=== PATIENT | female | born 1965 | race Caucasian/White ===

== ENCOUNTER → 2017-03-30 18:38 | Outpatient (CLI) | payer MEDICAID ==
[~2017-03-30 18:38] MED LIST: BENICAR HCT 20-1 TA1 PO; COREG6.25 MG PO; PEPCID20 MG PO
[2017-03-30 20:29] LABS: T4 THYROXIN - FREE 1.2 ng/dL (0.76-1.46); THYROID STIMULATING HORMONE 0.91 uIU/mL (0.36-3.74)
== END | disposition home or self-care (01) ==
LOC: D.LABREF 18:38
PROVIDERS: Internal Medicine Cardiovascular Disease
DX: I42.9 Cardiomyopathy, unspecified (principal)

== ENCOUNTER → 2017-08-30 13:00 | Outpatient (CLI) | payer MEDICAID ==
--- NOTE | ~2017-08-30 | EC ---
PATIENT:DEVON OCHOA DATE OF SERVICE: 08/30/17 SEX: F MEDICAL RECORD: [id number] DATE OF : 63 LOCATION:D.[facility] [place] AGE OF PATIENT: 52 ADMISSION DATE: 08/30/17 REFERRING PHYSICIAN: INTERPRETING PHYSICIAN: RAMOS ROMERO MD ECHOCARDIOGRAM REPORT ECHO CHARGES 4 ECHO COMPLETE CLINICAL DIAGNOSIS: CARDIOMYOPATHY/TACHYCARDIA/ DYSPNEA/HTN ECHOCARDIOGRAPHIC MEASUREMENTS (adult normal given) AC root (d.<3.7cm) 2.9 cm LV Septum d (<1.2 cm> 1.3 cm Valve Excursion 2.0 cm LV Septum (systole) 1.7 cm Left Atria (s.<4.0cm> 3.6 cm LVPW d(<1.2cm) 1.2 cm RV (d.<2.3cm) 2.3 cm LVPW (sytole) 1.8 cm LV diastole(<5.6CM) 4.3 cm MV E-F(>70mm/sec) cm LV systole 2.6 cm LVOT Diameter 2.0 cm MV exc.(>10mm) cm Est.ejection fraction (50-75%) % Pericardial Effusion N DOPPLER: LVIT cm/sec A 48.0 cm/sec E 102 cm/sec LA cm/sec RVSP 22.4 mmHg LVOT 95.0 cm/sec AOP1/2T m/s Asc. Ao 134 cm/sec RVOT 79.0 cm/sec RA cm/sec PA 97.0 cm/sec AV Gradient Peak 7.1 mmHg AV Mean 3.7 mmHg AV Area 2.0 cm MV Gradient Peak 5.4 mmHg MV Mean 2.0 mmHg MV Area cm COMMENTS: Jail Guard: Carlita COMBSOE Gill Net Stringer: Magaly Romero TAPE# PACS DATE OF SERVICE: 08/30/2017 PROCEDURE: Transthoracic echocardiogram. FINDINGS: 1. Left ventricle is normal size, normal function with inflow characteristics that are normal. There is mild concentric left ventricular hypertrophy. 2. The left atrium is normal size, normal function. 3. The aortic valve is normal. 4. The mitral valve has normal structure with mild mitral regurgitation. ECHOCARDIOGRAM REPORT [id number] DEVON OCHOA 5. Tricuspid valve has mild tricuspid regurgitation. Normal RVSP. 6. The pericardium is normal. 7. The pulmonic valve is not well visualized, otherwise grossly normal. 8. The right ventricle is normal size and normal function. 9. The right atrium is mildly dilated. TRANSINT:[id number] Voice Confirmation ID: [id number] DOCUMENT ID: [id number] RAMOS ROMERO MD at 1252 CC: [id number] DICTATION DATE: 08/31/17 1116 UNIT SECRETARY: 08/31/17 1253 DEP CLI 08/30/17 [id number] [place] [address]
== END | disposition home or self-care (01) ==
LOC: D.ECHO 13:00
DX: I42.9 Cardiomyopathy, unspecified (principal); R00.0 Tachycardia, unspecified; R06.02 Shortness of breath; I10 Essential (primary) hypertension

== ENCOUNTER 2018-02-15 06:40 | Day surgery (SDC) | payer MEDICAID ==
[~2018-02-15] VITALS: Ht 154.9 cm; Wt 98.0 kg
--- NOTE | ~2018-02-15 | OP ---
PATIENT NAME: DEVON OCHOA MEDICAL RECORD: [id number] :63 LOCATION:D.[facility] ADMISSION DATE: SURGEON: ENRIQEU MALDONADO MD DATE OF OPERATION: 02/15/2018 PREOPERATIVE DIAGNOSES: 1. Biliary dyskinesia. 2. Hypertension. 3. 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 POSTOPERATIVE DIAGNOSES: 1. Biliary dyskinesia. 2. Hypertension. 3. 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 PROCEDURE: Laparoscopic cholecystectomy. SURGEON: Enrique Maldonado MD ADMINISTRATIVE ASSISTANT FRONT DESK: Kelly Hernandez APRN REPORT OF OPERATION: The patient's abdomen was prepped and draped in sterile fashion. A cutdown was made on the superior aspect of the umbilicus, 0 Vicryls were placed in the fascia bilaterally and the fascia was incised with 15-blade. I then bluntly entered the peritoneal cavity and placed a 12-mm Katey port. Under direct visualization, a 5 mm trocar was placed in the epigastrium and 2 more 5-mm trocars were placed in the right subcostal region. The gallbladder was grasped and elevated. There was no sign of any inflammatory changes. The cystic artery and cystic duct were dissected free and these were clipped proximally and distally and ligated in standard fashion. The gallbladder was taken off the liver bed using electrocautery and placed into the right upper quadrant. Any bleeding from the liver bed was treated with electrocautery. We then irrigated out the right upper quadrant and assured there was no sign of any further bleeding or bile leakage. At this point, the ports and insufflation were then removed and the gallbladder was taken out through the umbilicus. The umbilical fascia was closed with interrupted 0 Vicryls times 3. The wounds were irrigated out with normal saline and infused with 10 mL of 0.25% Marcaine with epinephrine. The skin incisions were all closed with subcutaneous 5-0 Monocryl and dressed appropriately. COMPLICATIONS: None. CONDITION: Stable. ANESTHESIA: General endotracheal and local. BLOOD LOSS: Minimal. TRANSINT:[id number] Voice Confirmation ID: [id number] DOCUMENT ID: [id number] OPERATIVE REPORT [id number] DEVON OCHOA NERIQUE MALDONADO MD at 1418 CC: RAY REAL [id number] DICTATION DATE: 02/15/18 1035 SANDING MACHINE OPERATOR OR TENDER: 02/15/18 1132 [facility] [address] [id number]
[~2018-02-15 06:40] MED LIST changes: +BENTYL 20 MG TA20 MG PO; +CARAFATE1 G PO; +PRILOSEC2.5 MG PO
[2018-02-15 07:20] LABS: HEMATOCRIT 38.4 % (36.0-48.0); MCH 31.6 pg (26.0-34.0); MCHC 33.9 g/dL (31.0-37.0); MCV 93.2 fL (80.0-100.0); MEAN PLATELET VOLUME 9.3 fL (7.4-10.4); RBC 4.12 10x6/uL (4.00-5.40); RDW 13.9 % (11.5-14.5); WBC 8.6 10x3/uL (4.8-10.8)
[2018-02-15 07:48] VITALS: BP 126/76; Ht 154.9 cm; Wt 98.0 kg
[2018-02-15] MEDS ORDERED: DILAUDID2 MG PO (10:30)
== END 2018-02-15 14:05 | disposition home or self-care (01) ==
LOC: D.OPS 06:40 → D.PAN 13:00 → D.OPS 14:05
PROVIDERS: Anesthesiology
DX: K81.1 Chronic cholecystitis (principal); I11.0 Hypertensive heart disease with heart failure; I50.9 Heart failure, unspecified; F17.200 Nicotine dependence, unspecified, uncomplicated; Z01.812 Encounter for preprocedural laboratory examination

== ENCOUNTER 2018-03-12 12:28 | Inpatient (IN) | payer MEDICAID ==
[~2018-03-12] VITALS: Ht 154.9 cm; Wt 97.5 kg
[~2018-03-12 12:28] MED LIST changes: +DILAUDID2 MG PO
[2018-03-12] MEDS ORDERED: ADIPEX-P37.5 M1 PO (12:43)
[2018-03-12] MEDS ORDERED: LEVAQUIN500 MG PO (12:43)
[2018-03-12] MEDS ORDERED: OMEPRAZOLE40 MG PO (12:44)
[2018-03-12] MEDS ORDERED: ZANTAC150 MG PO (12:44)
[2018-03-12] MEDS ORDERED: ZOFRAN4 MG PO (12:45)
[2018-03-12] MEDS ORDERED: FLAGYL500 MG PO (12:45)
[2018-03-12] MEDS ORDERED: PHENERGAN25 M1 PO (12:46)
[2018-03-12] MEDS ORDERED: BENTYL 20 MG TA20 MG PO (12:47)
[2018-03-12 13:24] LABS: APPEARANCE HAZY (CLEAR); BILIRUBIN NEGATIVE (NEGATIVE); COLOR DK YELLOW (YELLOW); GLUCOSE NEGATIVE (NEGATIVE); KETONE NEGATIVE (NEGATIVE); NITRITE NEGATIVE (NEGATIVE); PH 6.5 (5.0-6.0); PROTEIN NEGATIVE (NEGATIVE); SPECIFIC GRAVITY 1.015 (1.005-1.020); UROBILINOGEN NORMAL (NORMAL)
[2018-03-12 13:32] LABS: BACTERIA MODERATE /hpf (NONE SEEN); EPITHELIAL CELLS 0-5 /hpf (0-5); RED CELLS - URINE 0-5 /hpf (0-5); WHITE CELLS - URINE 0-5 /hpf (0-5); YEAST >1+ /hpf (NONE SEEN)
[2018-03-12 13:36] LABS: BASOPHILS 0.2 % (0-2); EOSINOPHILS 2.7 % (0-7); HEMATOCRIT 40.1 % (36.0-48.0); HEMOGLOBIN 13.5 g/dL (12-16); IMMATURE GRANULOCYTES 0.4 % (0-5); MCH 31.6 pg (26.0-34.0); MCHC 33.7 g/dL (31.0-37.0); MCV 93.9 fL (80.0-100.0); MEAN PLATELET VOLUME 9.2 fL (7.4-10.4); MONOCYTES 7.1 % (2-11); NEUTROPHILS 59.6 % (40-80); PLATELET COUNT 326 10x3/uL (130-400); RBC 4.27 10x6/uL (4.00-5.40); RDW 13.1 % (11.5-14.5); WBC 8.1 10x3/uL (4.8-10.8)
[2018-03-12 13:48] LABS: ALBUMIN 3.7 g/dL (3.4-5.0); ALKALINE PHOSPHATASE 154 U/L (46-116); ALT (SGPT) 80 U/L (10-68); BILIRUBIN - TOTAL 0.33 mg/dL (0.2-1.3); CALC OSMOLALITY 274 mosm/kg (275-300); CALCIUM 8.9 mg/dL (8.5-10.1); CARBON DIOXIDE 27.9 mmol/L (21.0-32.0); CHLORIDE - SERUM 102 mmol/L (98-107); CREATININE - SERUM 0.6 mg/dL (0.6-1.3); GLUCOSE 99 mg/dL (74-106); POTASSIUM - SERUM 4.2 mmol/L (3.5-5.1); PROTEIN - SERUM 7.5 g/dL (6.4-8.2); SODIUM 138 mmol/L (136-145); UREA NITROGEN 11 mg/dL (7-18); eGFR NON AFRICAN AMERICAN > 90 mL/min (90-120)
[2018-03-12 16:38] LABS: ERYTHROCYTE SEDIMENTATION RATE 27 mm/hr (0-30)
[2018-03-12 23:59] VITALS: BP 125/80; BMI 40.7
[2018-03-13] VITALS: BP 125/86
[2018-03-13 04:00] VITALS: BP 136/70
[2018-03-13 05:16] LABS: BASOPHILS 0.3 % (0-2); EOSINOPHILS 2.2 % (0-7); HEMATOCRIT 34.7 % (36.0-48.0); HEMOGLOBIN 11.3 g/dL (12-16); IMMATURE GRANULOCYTES 0.1 % (0-5); LYMPHOCYTES 34.5 % (15-50); MCHC 32.6 g/dL (31.0-37.0); MCV 95.1 fL (80.0-100.0); MEAN PLATELET VOLUME 9.2 fL (7.4-10.4); MONOCYTES 7.4 % (2-11); NEUTROPHILS 55.5 % (40-80); PLATELET COUNT 287 10x3/uL (130-400); RBC 3.65 10x6/uL (4.00-5.40); WBC 6.7 10x3/uL (4.8-10.8)
[2018-03-13 05:33] LABS: CALC OSMOLALITY 275 mosm/kg (275-300); CALCIUM 8.1 mg/dL (8.5-10.1); CARBON DIOXIDE 27.6 mmol/L (21.0-32.0); CHLORIDE - SERUM 105 mmol/L (98-107); CREATININE - SERUM 0.7 mg/dL (0.6-1.3); GLUCOSE 98 mg/dL (74-106); POTASSIUM - SERUM 3.8 mmol/L (3.5-5.1); SODIUM 139 mmol/L (136-145); eGFR NON AFRICAN AMERICAN > 90 mL/min (90-120)
[2018-03-13 05:36] LABS: UREA NITROGEN 8 mg/dL (7-18)
[2018-03-13 08:55] VITALS: BP 99/66
[2018-03-13 12:52] VITALS: BP 131/74
[2018-03-13 20:52] VITALS: BP 111/64; BP 136/81
[2018-03-14 04:17] VITALS: BP 120/61
[2018-03-14 06:00] LABS: BASOPHILS 0.3 % (0-2); EOSINOPHILS 0.4 % (0-7); HEMATOCRIT 33.3 % (36.0-48.0); HEMOGLOBIN 11.2 g/dL (12-16); IMMATURE GRANULOCYTES 0.3 % (0-5); LYMPHOCYTES 17.7 % (15-50); MCH 31.6 pg (26.0-34.0); MCHC 33.6 g/dL (31.0-37.0); MCV 94.1 fL (80.0-100.0); MEAN PLATELET VOLUME 9.3 fL (7.4-10.4); MONOCYTES 4.2 % (2-11); NEUTROPHILS 77.1 % (40-80); PLATELET COUNT 279 10x3/uL (130-400); RBC 3.54 10x6/uL (4.00-5.40); WBC 7.9 10x3/uL (4.8-10.8)
[2018-03-14 06:50] LABS: ALKALINE PHOSPHATASE 118 U/L (46-116); ALT (SGPT) 46 U/L (10-68); BILIRUBIN - TOTAL 0.33 mg/dL (0.2-1.3); CALC OSMOLALITY 281 mosm/kg (275-300); CALCIUM 8.1 mg/dL (8.5-10.1); CARBON DIOXIDE 25.7 mmol/L (21.0-32.0); CHLORIDE - SERUM 106 mmol/L (98-107); CREATININE - SERUM 0.5 mg/dL (0.6-1.3); GLUCOSE 110 mg/dL (74-106); POTASSIUM - SERUM 3.8 mmol/L (3.5-5.1); PROTEIN - SERUM 6.3 g/dL (6.4-8.2); SODIUM 142 mmol/L (136-145); UREA NITROGEN 6 mg/dL (7-18); eGFR NON AFRICAN AMERICAN > 90 mL/min (90-120)
[2018-03-14 08:43] VITALS: BP 129/69
[2018-03-14 13:16] VITALS: BP 124/69
[2018-03-14 18:06] VITALS: BP 123/71
[2018-03-14 21:02] VITALS: BP 136/75
[2018-03-15 05:24] VITALS: BP 128/79
[2018-03-15 07:21] LABS: BASOPHILS 0.3 % (0-2); EOSINOPHILS 1.9 % (0-7); HEMATOCRIT 33.6 % (36.0-48.0); IMMATURE GRANULOCYTES 0.2 % (0-5); MCH 30.9 pg (26.0-34.0); MCHC 32.7 g/dL (31.0-37.0); MCV 94.4 fL (80.0-100.0); MEAN PLATELET VOLUME 9.5 fL (7.4-10.4); MONOCYTES 6.5 % (2-11); NEUTROPHILS 53.1 % (40-80); PLATELET COUNT 284 10x3/uL (130-400); RBC 3.56 10x6/uL (4.00-5.40); WBC 6.3 10x3/uL (4.8-10.8)
[2018-03-15 07:49] LABS: ALBUMIN 3.1 g/dL (3.4-5.0); ALKALINE PHOSPHATASE 96 U/L (46-116); ALT (SGPT) 37 U/L (10-68); BILIRUBIN - TOTAL 0.32 mg/dL (0.2-1.3); CALC OSMOLALITY 279 mosm/kg (275-300); CALCIUM 8.2 mg/dL (8.5-10.1); CARBON DIOXIDE 26.9 mmol/L (21.0-32.0); CHLORIDE - SERUM 107 mmol/L (98-107); CREATININE - SERUM 0.6 mg/dL (0.6-1.3); GLUCOSE 91 mg/dL (74-106); POTASSIUM - SERUM 3.4 mmol/L (3.5-5.1); PROTEIN - SERUM 6.2 g/dL (6.4-8.2); SODIUM 142 mmol/L (136-145); UREA NITROGEN 5 mg/dL (7-18); eGFR NON AFRICAN AMERICAN > 90 mL/min (90-120)
[2018-03-15 09:21] VITALS: BP 122/75
[2018-03-15 12:38] VITALS: BP 152/91
[2018-03-15 13:13] VITALS: Ht 154.9 cm; Wt 97.5 kg
[2018-03-15 17:30] VITALS: BP 142/88
[2018-03-15 21:36] VITALS: BP 155/91
[2018-03-16 06:06] LABS: BASOPHILS 0.6 % (0-2); EOSINOPHILS 2.6 % (0-7); HEMATOCRIT 34.5 % (36.0-48.0); HEMOGLOBIN 11.4 g/dL (12-16); IMMATURE GRANULOCYTES 0.1 % (0-5); MCH 31.1 pg (26.0-34.0); MCV 94.3 fL (80.0-100.0); MEAN PLATELET VOLUME 9.4 fL (7.4-10.4); MONOCYTES 7.9 % (2-11); NEUTROPHILS 53.8 % (40-80); PLATELET COUNT 266 10x3/uL (130-400); RBC 3.66 10x6/uL (4.00-5.40); RDW 13.1 % (11.5-14.5)
[2018-03-16 06:45] LABS: ALBUMIN 2.9 g/dL (3.4-5.0); ALKALINE PHOSPHATASE 89 U/L (46-116); ALT (SGPT) 33 U/L (10-68); BILIRUBIN - TOTAL 0.44 mg/dL (0.2-1.3); CALC OSMOLALITY 285 mosm/kg (275-300); CALCIUM 8.4 mg/dL (8.5-10.1); CARBON DIOXIDE 28.8 mmol/L (21.0-32.0); CHLORIDE - SERUM 109 mmol/L (98-107); CREATININE - SERUM 0.6 mg/dL (0.6-1.3); GLUCOSE 93 mg/dL (74-106); POTASSIUM - SERUM 3.7 mmol/L (3.5-5.1); SODIUM 145 mmol/L (136-145); T4 THYROXIN - FREE 1.01 ng/dL (0.76-1.46); THYROID STIMULATING HORMONE 2.36 uIU/mL (0.36-3.74); UREA NITROGEN 4 mg/dL (7-18); eGFR NON AFRICAN AMERICAN > 90 mL/min (90-120)
[2018-03-16 08:40] VITALS: BP 135/79
[2018-03-16 12:19] VITALS: BP 147/85
[2018-03-16] MEDS ORDERED: LEVAQUIN500 MG PO (14:34)
[2018-03-16] MEDS ORDERED: FLAGYL500 MG PO (14:34)
[2018-03-17 09:18] LABS: IMMUNOGLOBULIN A 146 mg/dL (87-352)
[2018-03-18 13:19] LABS: ANTIGLIADIN IGA 2 units (0-19); ANTIGLIADIN IGG 1 units (0-19)
[2018-03-18 15:26] LABS: T-TRANSGLUTAMINASE IGA <2 U/mL (0-3); T-TRANSGLUTAMINASE IGG <2 U/mL (0-5)
[2018-03-18 20:08] LABS: OVA + PARASITE EXAM Final report (())
== END 2018-03-16 15:59 | disposition home or self-care (01) | DRG 392 ==
LOC: D.ER 12:28 → D.EDHOLD 20:51 → D.MS 20:51
PROVIDERS: Family Medicine; Family Medicine Adult Medicine; Internal Medicine Gastroenterology
DX: A09 Infectious gastroenteritis and colitis, unspecified (principal); F17.203 Nicotine dependence unspecified, with withdrawal; I50.9 Heart failure, unspecified; G43.909 Migraine, unspecified, not intractable, without status migrainosus; E86.0 Dehydration; D64.9 Anemia, unspecified

== ENCOUNTER → 2018-04-19 07:55 | Outpatient (CLI) | payer MEDICAID ==
[2018-03-15 13:13] VITALS: BMI 40.6
[~2018-04-19 07:55] MED LIST changes: +ADIPEX-P37.5 M1 PO; +FLAGYL500 MG PO; +LEVAQUIN500 MG PO; +OMEPRAZOLE40 MG PO; +PHENERGAN25 M1 PO; +ZANTAC150 MG PO; +ZOFRAN4 MG PO
== END | disposition home or self-care (01) ==
LOC: D.US 07:55
DX: I73.9 Peripheral vascular disease, unspecified (principal); R00.2 Palpitations; I10 Essential (primary) hypertension

== ENCOUNTER 2018-05-30 13:44 | Emergency (ER) | payer MEDICAID ==
[~2018-05-30] VITALS: Ht 154.9 cm; Wt 95.5 kg
[2018-05-30 13:53] VITALS: Ht 154.9 cm; Wt 95.5 kg
[2018-05-30 14:21] LABS: BASOPHILS 0.4 % (0-2); EOSINOPHILS 2.6 % (0-7); HEMATOCRIT 39.3 % (36.0-48.0); HEMOGLOBIN 13.5 g/dL (12-16); IMMATURE GRANULOCYTES 0.1 % (0-5); LYMPHOCYTES 39.1 % (15-50); MCH 31.6 pg (26.0-34.0); MCHC 34.4 g/dL (31.0-37.0); MONOCYTES 6.2 % (2-11); NEUTROPHILS 51.6 % (40-80); PLATELET COUNT 304 10x3/uL (130-400); RBC 4.27 10x6/uL (4.00-5.40); RDW 13.3 % (11.5-14.5)
[2018-05-30 14:32] LABS: ALBUMIN 3.7 g/dL (3.4-5.0); ALKALINE PHOSPHATASE 106 U/L (46-116); ALT (SGPT) 20 U/L (10-68); BILIRUBIN - TOTAL 0.24 mg/dL (0.2-1.3); CALC OSMOLALITY 276 mosm/kg (275-300); CARBON DIOXIDE 25.4 mmol/L (21.0-32.0); CHLORIDE - SERUM 104 mmol/L (98-107); CREATININE - SERUM 0.7 mg/dL (0.6-1.3); GLUCOSE 107 mg/dL (74-106); PROTEIN - SERUM 7.4 g/dL (6.4-8.2); SODIUM 139 mmol/L (136-145); UREA NITROGEN 11 mg/dL (7-18); eGFR NON AFRICAN AMERICAN > 90 mL/min (90-120)
[2018-05-30 14:35] LABS: APPEARANCE CLEAR (CLEAR); APTT 27.2 SECONDS (22.8-39.4); BILIRUBIN NEGATIVE (NEGATIVE); COLOR YELLOW (YELLOW); GLUCOSE NEGATIVE (NEGATIVE); INR 0.87 (0.85-1.17); KETONE NEGATIVE (NEGATIVE); NITRITE NEGATIVE (NEGATIVE); PROTEIN NEGATIVE (NEGATIVE); PROTIME 11.4 SECONDS (11.6-15.0); RED CELLS - URINE 0-5 /hpf (0-5); SPECIFIC GRAVITY 1.015 (1.005-1.020); UROBILINOGEN NORMAL (NORMAL); WHITE CELLS - URINE OCC /hpf (0-5)
[2018-05-30 14:36] LABS: BACTERIA FEW /hpf (NONE SEEN); EPITHELIAL CELLS 0-5 /hpf (0-5); MUCUS <1+ /lpf (NONE SEEN)
[2018-05-30] MEDS ORDERED: NORCO 7.5/325 T1 TA1 PO (15:16)
[2018-05-30 16:10] VITALS: BP 128/92
== END 2018-05-30 16:12 | disposition home or self-care (01) ==
LOC: D.ER 13:44
PROVIDERS: Emergency Medicine
DX: R10.30 Lower abdominal pain, unspecified (principal); Z87.19 Personal history of other diseases of the digestive system; K92.1 Melena; I50.9 Heart failure, unspecified